=== PATIENT | male | born 1980 | race Caucasian/White ===

== ENCOUNTER 2017-07-31 12:41 | Emergency (ER) | payer SELFPAY ==
[~2017-07-31] VITALS: Ht 175.3 cm; Wt 100.2 kg
[2017-07-31 12:44] VITALS: BP 148/75
== END 2017-07-31 13:36 | disposition home or self-care (01) ==
LOC: ED 13:30
DX: S01.01XD Laceration without foreign body of scalp, subsequent encounter (principal); F07.81 Postconcussional syndrome; X58.XXXD Exposure to other specified factors, subsequent encounter
CPT/HCPCS: 99282